=== PATIENT | female | born 1980 | race Two or more races ===

== ENCOUNTER 2019-03-10 11:18 | Emergency (ER) | payer MEDICAID ==
[~2019-03-10] VITALS: Ht 152.4 cm; Wt 81.6 kg
[2019-03-10 11:25] VITALS: BP 139/97
--- NOTE | 2019-03-10 11:34 | NUR ---
ED Nurse Note: PT WALKED IN DUE TO LEFT ARM SWELLING AND PAIN S/P FALL FROM A LADDER THIS MORNING AROUND 0925AM. AAO X4 AMBULATORY. NOTED LEFT ARM SWELLING AND PT UNABLE TO MOVE HER LEFT ARM DUE TO PAIN. ICE PACK APPLIED.
--- NOTE | 2019-03-10 12:01 | Emergency Room Report ---
History of Present Illness General Chief Complaint: Upper Extremity Injury Source: Patient Present Illness HPI Patient is here with complaints of left elbow pain reports falling off a ladder Prior to arrival patient had presented to another facility however was unable to get x-rays Denies any shoulder pain denies any lapse of consciousness denies any chest pain or shortness of breath pain is 10 out of 10 localized to the left elbow Allergies: Coded Allergies: No Known Allergies (Unverified , 03/10/19) Patient History Past Medical History: see triage record Last Menstrual Period: NA Now: No Reviewed Nursing Documentation: PMH: Agreed; PSxH: Agreed Nursing Documentation-PMH Past Medical History: No Stated History Hx Cardiac Problems: No Hx Hypertension: No Hx Pacemaker: No Hx Asthma: No Hx COPD: No Hx Diabetes: No Hx Cancer: No Hx Gastrointestinal Problems: No Hx Dialysis: No History Of Psychiatric Problem: No Hx Neurological Problems: No Hx Cerebrovascular Accident: No Hx Seizures: No Review of Systems All Other Systems: negative except mentioned in HPI Physical Exam Vital Signs Date Time Temp Pulse Resp B/P (MAP) Pulse Ox O2 Delivery O2 Flow Rate FiO2 03/10/19 11:25 98.1 81 18 139/97 (111) 97 Room Air Sp02 EP Interpretation: reviewed, normal General Appearance: alert, non-toxic Head: normocephalic, atraumatic Eyes: bilateral eye PERRL, bilateral eye EOMI ENT: hearing grossly normal, EOM grossly intact Neck: supple, no bony tend Respiratory: lungs clear, no respiratory distress, no retraction Cardiovascular #1: regular rate, rhythm Gastrointestinal: non tender, soft Musculoskeletal: other - Obvious swelling left elbow, tender on palpation, wrist is nontender left shoulder nontender, neurovascular intact no other laceration Neurologic: alert, oriented x3 Psychiatric: normal inspection Skin: other - Contusion with some swelling noted to left elbow Lymphatic: normal inspection Procedures Splinting Splinting : Consent: Verbal Location: Left elbow Splint: posterior long Pre-Proc Neuro Vasc Exam: normal Post-Proc Neuro Vasc Exam: normal Patient Tolerated: Well Complications: None Medical Decision Making Diagnostic Impression: Primary Impression: Elbow fracture, left ER Course Given the patient's history and presentation x-ray imaging is obtained there is significant fracture involving the left elbow, with concern of radial head dislocation along with the fracture Patient remains neurovascularly intact Case discussed with on-call orthopedics who does recommend close urgent outpatient follow-up with a splint Patient is encouraged to follow-up with primary physician for Ortho referral she does report that she does not have a primary physician and therefore orthopedic Clinic was provided for her Patient will return to the ER with any concerns or inability to follow-up Other X-Ray Diagnostic Results Other X-Ray Diagnostic Results : X-Ray ordered: Left elbow # of Views/Limited Vs Complete: 4 View Indication: Pain EP Interpretation: Yes Interpretation: other - Significant fracture involving olecranon, radial head appears mildly displaced, multiple fracture fragments, soft tissue swelling Impression: Other - Acute fracture with likely radial head dislocation as noted Electronically Signed by: Nadya Lu DO Last Vital Signs Date Time Temp Pulse Resp B/P (MAP) Pulse Ox O2 Delivery O2 Flow Rate FiO2 03/10/19 11:25 98.1 81 18 139/97 97 Room Air Status: improved Disposition: HOME, SELF-CARE Condition: Improved Scripts Hydrocodone Bit/Acetaminophen 5-325* (NORCO 5-325*) 1 Each Tablet 1 TAB ORAL Q6H PRN for For Pain, #10 TAB 0 Refills Prov: Nadya Lu DO 03/10/19 Ibuprofen* (MOTRIN*) 600 Mg Tablet 600 MG ORAL Q8H PRN for For Pain, #20 TAB 0 Refills Prov: Nadya Lu DO 03/10/19 Additional Instructions: Urgent follow-up with orthopedic clinic provided in the next 24 hours. Return to the ER with any changes or concerns Nadya Lu DO Mar 10, 2019 12:01
--- NOTE | 2019-03-10 12:15 | NUR ---
ED Nurse Note: Report given to Humaira Lynch RN. Endorsed plan of care.
--- NOTE | 2019-03-10 12:20 | NUR ---
ED Nurse Note: CALLED RADIOLOGY TO FF UP WITH XRAY PROCEDURE.
[2019-03-10] MEDS ORDERED: IBUPROFEN600 MG ORAL (13:24)
[2019-03-10] MEDS ORDERED: NORCO 5-325 TA1 EACH ORAL (13:24)
[2019-03-10] MEDS ORDERED: HYDROcodone/Acetamin 10/325 tab ORAL ONE (13:30)
[2019-03-10 13:47] VITALS: BP 128/90
--- NOTE | 2019-03-10 13:47 | NUR ---
ER DISCHARGE NOTE: Patient is cleared to be discharged per ERMD, pt is aox4, on room air, with stable vital signs. pt was given dc and prescription instructions, pt was able to verbalize understanding, pt id band removed . pt is able to ambulate with steady gait. pt took all belongings and left with her family member.
--- NOTE | 2019-03-10 13:59 | Diagnostic Imaging Report ---
Indication: Elbow trauma, pain Technique: 4 views of the left elbow Comparison: none Findings: There is a severely comminuted fracture of the proximal ulna. Some of the fragments appear significantly displaced and rotated. The radial head is dislocated inferiorly. There is a small osseous fragment adjacent to the radial head. Uncertain as to whether this is an ulnar or radial origin. Impression: Severely comminuted proximal ulnar fracture Dislocated radial head. Cannot rule out small avulsion fracture or other fracture off of the radial head
== END 2019-03-10 13:47 | disposition home or self-care (01) ==
LOC: EMR 12:00
DX: S52.002A Unspecified fracture of upper end of left ulna, initial encounter for closed fracture (principal); S53.095A Other dislocation of left radial head, initial encounter; W11.XXXA Fall on and from ladder, initial encounter; Y93.9 Activity, unspecified; Y92.9 Unspecified place or not applicable
CPT/HCPCS: 29105; 73080; Z7502; 99283